=== PATIENT | female | born 1955 | race Two or more races ===

== ENCOUNTER 2025-05-24 14:31 | Emergency (ER) | payer BC, OTHER ==
[~2025-05-24] VITALS: Ht 154.9 cm; Wt 62.1 kg
[2025-05-24 16:37] VITALS: BP 129/84; TEMP 98; O2SAT 99
== END 2025-05-24 16:38 | disposition home or self-care (01) ==
LOC: ER 14:35
DX: S52.501A Unspecified fracture of the lower end of right radius, initial encounter for closed fracture (principal); W01.0XXA Fall on same level from slipping, tripping and stumbling without subsequent striking against object, initial encounter; Y93.89 Activity, other specified; Y92.89 Other specified places as the place of occurrence of the external cause; Y99.8 Other external cause status
CPT/HCPCS: 73110